=== PATIENT | female | born 1955 | race Caucasian/White ===

== ENCOUNTER 2017-02-21 00:37 | Emergency (ER) | payer SELFPAY ==
[~2017-02-21] VITALS: Ht 157.5 cm; Wt 81.0 kg
[~2017-02-21 00:37] MED LIST: AMLO-218; ASPIRIN; [UNRECOGNIZED DRUG - REMARK]
[2017-02-21 00:42] VITALS: Ht 157.5 cm; Wt 81.0 kg
== END 2017-02-21 01:00 | disposition left against medical advice (07) ==
LOC: E/R 00:37
DX: Z53.21 Procedure and treatment not carried out due to patient leaving prior to being seen by health care provider (principal)